=== PATIENT | female | born 1990 | race Caucasian/White ===

== ENCOUNTER 2021-08-01 20:27 | Emergency (ER) | payer SELFPAY ==
[~2021-08-01] VITALS: Ht 170.2 cm; Wt 48.1 kg
--- NOTE | 2021-08-01 20:39 | NUR ---
PT BHARAT FROM THE [facility]. C/O POSSIBLE OD ON BENZO +ETOH NOTED. PLACED IN BED 14 ON CHOIR ACCOMPANIST AND PULSE OX. AWAITING ER MD FOR EVAL AND ORDERS. NO ACUTE DISTRESS NOTED.
[2021-08-01 21:04] LABS: BASOPHILS # (AUTO) 0.1 K/uL (0.0-0.2); EOSINOPHILS % (AUTO) 0.3 % (0.0-6.0); HEMATOCRIT 32 % (33-45); HEMOGLOBIN 10.7 g/dL (11.5-14.8); LYMPHOCYTES # (AUTO) 2.6 K/uL (0.8-4.8); LYMPHOCYTES % (AUTO) 27.2 % (20.0-44.0); MEAN CORPUSCULAR HGB CONC 33 g/dl (31.0-36.0); MEAN CORPUSCULAR VOLUME 85 fL (82-100); MONOCYTES # (AUTO) 0.8 K/uL (0.1-1.30); MONOCYTES % (AUTO) 8.1 % (2.0-12.0); NEUTROPHILS # (AUTO) 6.1 K/uL (1.8-8.9); NEUTROPHILS % (AUTO) 63.4 % (43.0-81.0); PLATELET COUNT (AUTO) 264 K/uL (150-450); RED BLOOD CELL COUNT(AUTO) 3.82 MIL/uL (4.0-5.2); WHITE BLOOD COUNT (AUTO) 9.6 K/uL (4.3-11.0)
[2021-08-01 21:16] LABS: CALCIUM, SERUM 7.9 mg/dL (8.5-10.1); CREATININE 0.7 mg/dL (0.6-1.3); POTASSIUM 3.1 mmol/L (3.5-5.1)
[2021-08-01 21:23] LABS: ALBUMIN 2.8 g/dL (3.4-5.0); BILIRUBIN,DIRECT 0.1 mg/dL (0.0-0.2); BILIRUBIN,TOTAL 0.2 mg/dL (0.2-1.0); TOTAL PROTEIN, SERUM 5.7 g/dL (6.4-8.2)
--- NOTE | 2021-08-01 21:30 | NUR ---
PT ATTACHED TO MONITOR AND POX, EASILY AROUSABLE. VSS
--- NOTE | 2021-08-01 22:30 | NUR ---
Patient is resting comfortably in bed with eyes closed. Easily aroused. VSS
--- NOTE | 2021-08-01 23:21 | NUR ---
PT SLEEPING, ATTACHED TO MONITOR, VSS
--- NOTE | 2021-08-02 01:23 | NUR ---
PT SLEEPING, BREATHING EVENLY AND UNLABORED. ATTACHED TO MONITOR.
--- NOTE | 2021-08-02 02:15 | NUR ---
Patient is resting comfortably in bed with eyes closed. Easily aroused. VSS
--- NOTE | 2021-08-02 03:45 | NUR ---
pt sleeping, attached to monitor, breathing evenly and unlabored
--- NOTE | 2021-08-02 05:04 | NUR ---
Patient is resting comfortably in bed with eyes closed. Easily aroused. VSS
--- NOTE | 2021-08-02 06:15 | NUR ---
pt sleeping, attached to monitor and pox.
--- NOTE | 2021-08-02 08:10 | NUR ---
COMFORT COORDINATOR FROM [facility] [phone]
--- NOTE | 2021-08-02 09:00 | NUR ---
PER [facility] CALLED, ONCE PT IS READY FOR DC THEY CAN ARRANGE TRANSPORT AND GIVE REPORT TO SHIRA AT EXT [phone]
--- NOTE | 2021-08-02 09:36 | NUR ---
THE PATIENT IS HAVING BREAKFAST. TOLERATES DIET WELL
--- NOTE | 2021-08-02 11:25 | NUR ---
SPOKE WITH AK FROM THE [facility] ABOUT SETTING TRANSPORT, WILL RECEIVE CALLBACK.
--- NOTE | 2021-08-02 11:38 | NUR ---
Patient is alert and oriented X4. Patient is ambulatory with a steady gait.
--- NOTE | 2021-08-02 11:42 | NUR ---
Spoke with Makenna. Patient will be picked up by transport setted up by the [facility] in 30mins ETA.
--- NOTE | 2021-08-02 12:35 | NUR ---
The patient is alert and oriented x4. Denies pain. In room air and denies SOB. Respiration regular and unlabored. Denies SI/HI. Patient discharged to treatment center in stable condition. Written and verbal after care instructions given. Patient verbalizes understanding of instruction. The patient is picked up by Javier chong from the treatment center.
[2021-08-02 12:37] VITALS: BP 101/63
== END 2021-08-02 12:37 ==
LOC: ER 20:35
DX: F10.129 Alcohol abuse with intoxication, unspecified (principal); R41.82 Altered mental status, unspecified; F32.9 Major depressive disorder, single episode, unspecified; F41.9 Anxiety disorder, unspecified; Y90.8 Blood alcohol level of 240 mg/100 ml or more
CPT/HCPCS: 36415; 70450-TC; 80048-TC; 80076-TC; 82962-TC; 85025-TC; C9803; G0480